=== PATIENT | male | born 1940 | race Caucasian/White ===

== ENCOUNTER 2024-05-28 13:18 | Observation (INO) ==
--- NOTE | 2024-05-28 13:51 | Emergency Department Note ---
HPI - Abdominal Pain General Chief Complaint: Abdominal Pain Stated Complaint: ABD PAIN Time Seen by Provider: 05/28/24 13:26 Source: patient and family Mode of arrival: walk-in Limitations: no limitations History of Present Illness HPI narrative: This is a 83 year old male patient that presents to the ER with c/o diffuse abdominal pain for 3 days. Patient denies any chest pain, SOB, back pain, fever, chills, numbness, tinging, weakness or N/v/D. Patient states he has a history of an aneurysm. MD elicited complaint: abdominal pain Onset (ago): day(s) (3) Pain Consistency: constant Location: diffuse Severity: mild-moderate Quality: cramping Radiation: none Migration to: no migration Exacerbating factors: nothing Relieving factors: nothing Associated symptoms: denies other symptoms Related Data Home Medications Medication Instructions Recorded Confirmed amlodipine 5 mg tablet 5 mg PO DAILY 12/11/23 12/11/23 Previous Rx's Medication Instructions Recorded ketorolac 10 mg tablet 10 mg PO Q6H PRN pain #20 tabs 04/05/24 Allergies Allergy/AdvReac Type Severity Reaction Status Date / Time No Known Drug Allergies Allergy Verified 05/28/24 13:30 Review of Systems Status of ROS 10 or more systems reviewed and unremark able except as noted in history and below Constitutional Denies: fever, chills, change in weight, fatigue or malaise Eyes Denies: change in vision, blurry vision or blind spots Ears, nose, mouth, and throat Denies: throat pain, neck pain, throat swelling, difficulty swallowing, hoarseness or mouth pain Cardiovascular Denies: chest pain, palpitations, edema, swelling of feet/ankles, lightheadedness or shortness of breath with exertion Respiratory Denies: shortness of breath, cough, wheezing, stridor, pain on inspiration or change in phlegm color Gastrointestinal Reports: abdominal pain; Denies: nausea, vomiting, coffee grounds in vomit, heartburn, diarrhea or painful bowel movements Genitourinary Denies: painful urination, urinary frequency, urinary urgency or blood in urine Musculoskeletal Denies: back pain, neck pain, extremity pain, extremity swelling or joint pain Integumentary/Breast Denies: rash, itching, redness, skin pain, skin tenderness or skin swelling Neurological Denies: headache, numbness in extremities, weakness in extremities, lack of coordination or dizziness Psychiatric Denies: anxiety, mood swings, panic attacks, change in sleep pattern or hopelessness Endocrine Denies: excessive urination, excessive thirst, fatigue, cold intolerance or excessive sweating Hematologic/Lymphatic Denies: easy bruising, easy bleeding or enlarged lymph nodes Allergic/Immunologic Denies: hives, throat swelling, tongue swelling, facial swelling or wheezing PFSH PFSH Medical History Colon cancer HTN (hypertension) Surgical History History of appendectomy Hx of tonsillectomy Social History Smoking status: current every day smoker Within the past year, how often did you have a drink containing alcohol: never Score interpretation: A score less than 4 is consistent with normal alcohol consumption. Feel stressed/tense/nervous/anxious/difficulty sleeping: not at all Life stressors: other Life stressor details: 1 Due to disability, difficulty making decisions: No Exam Constitutional: normal general appearance and no apparent distress Vital Signs - 24 hr 05/28/24 13:28 05/28/24 14:02 Temperature 98.9 F Pulse Rate 96 H 86 Respiratory Rate 17 16 Blood Pressure 142/86 179/83 Pulse Oximetry 98 95 Oxygen Delivery Me thod Room Air HENMT: normocephalic, head/scalp atraumatic, hearing grossly normal bilaterally, external ears normal, nasal mucous membranes normal, external nose normal, oral mucous membranes normal and oropharynx normal Eyes: PERRL, EOMs intact bilaterally, conjunctivae normal and no scleral icterus Neck/C-Spine: visual inspection normal and trachea midline Lymph: no lymphadenopathy noted Chest: inspection of chest normal Respiratory: breath sounds equal bilaterally, normal respiratory effort, clear to auscultation bilaterally, no wheezes, no rales, no retractions and no use of accessory muscles Cardiovascular: normal heart rate noted, regular rhythm noted, no gallop, no rub, no murmur, no JVD, no clicks, peripheral pulses 2+ throughout and no additional abnormal heart sounds Gastrointestinal: abdomen normal to inspection, abdomen soft to palpation, tender to palpation (diffuse tenderness), nontender to percussion, nondistended, normoactive bowel sounds, no hepatosplenomegaly, no masses, no pulsatile mass, no ascites and no hernia Genitourinary: no CVA tenderness Back/Pelvis: spine normal to inspection Extremities: normal to inspection, normal to palpation, no tenderness, full ROM, no joint enlargement and no deformity Neurology: no movement abnormality noted, gait normal, speech normal, no fasciculations noted and GCS normal Psychiatry: mental status grossly normal, oriented x3, thought process normal, cooperative and affect normal Skin: skin color normal Course Course Hospital Course: 1534: due to ongoing abdominal pain, elevated WBC will admit patient to the medical floor. VSS, no s/s of acute distress noted Vital Signs Vital signs: Vital Signs Temperature 98.9 F 05/28/24 13:28 Pulse Rate 96 H 05/28/24 13:28 Respiratory Rate 17 05/28/24 13:28 Blood Pressure 142/86 05/28/24 13:28 Pulse Oximetry 98 05/28/24 13:28 Oxygen Delivery Method Room Air 05/28/24 13:28 Temperature 98.9 F 05/28/24 13:28 Pulse Rate 86 05/28/24 14:02 Respiratory Rate 16 05/28/24 14:02 Blood Pressure 179/83 05/28/24 14:02 Pulse Oximetry 95 05/28/24 14:02 Oxygen Delivery Method Room Air 05/28/24 13:28 MDM - Abdominal Pain Differential Diagnosis Differential diagnosis: Likely abdominal pain Medical Records Attestation: I reviewed the patient's medical records. Lab Data Attestation: I reviewed the patient's lab results. Labs: Lab Results 05/28/24 Range/Units 13:40 WBC 12.6 H (3.7-9.6) K/uL RBC 4.8 (4.40-5.80) M/uL Hgb 13.8 L (14.0-17.4) gm/dL Hct 40.8 L (41.3-50.1) % MCV 84.8 (81.9-96.5) fl MCH 28.7 (27.6-33.7) pg MCHC 33.8 (33.0-35.7) g/dl RDW 13.8 (11.0-14.8) % Plt Count 226 (142-355) K/uL MPV 9.5 (6.0-10.4) fl Gran % 58.6 (49.1-73.1) % Lymph % (Auto) 31.4 (17.6-39.05) % [place] % (Auto) 8.0 (4.5-10.7) % Eos % (Auto) 1.6 (0.0-4.0) % Baso % (Auto) 0.4 (0.0-1.3) Lymph # (Auto) 4.0 H (0.8-2.9) [place] # (Auto) 1.0 H (0.2-0.8) Eos # (Auto) 0.2 (0.0-0.3) Baso # (Auto) 0.1 (0.0-0.1) Absolute Gran (auto) 7.4 H (2.0-6.2) Sodium 139 (136-145) mmol/L Potassium 3.7 (3.6-5.2) mmol/L Chloride 98.0 (98-107) mmol/L Carbon Dioxide 33 H (21-32) mmol/L Anion Gap 8.0 (4-14) mEq/L BUN 21 H (7-18) mg/dL Creatinine 1.2 (0.6-1.3) mg/dL Estimated GFR 59.6 (>59.9) Glucose 111 H (70-110) mg/dL Calcium 9.6 (8.5-10.1) mg/dL Total Bilirubin 0.36 (0.0-1.0) mg/dL AST 12 L (15-37) U/L ALT 9 L (30-65) U/L Alkaline Phosphatase 93 (50-136) U/L Troponin I High Sens <4.00 L (4.0-60.4) ng/L Total Protein 8.8 H (6.4-8.2) g/dL Albumin 3.7 (3.4-5.0) g/dL Lipase 52.0 (16.0-77.0) U/L Urine Color Pale yellow (STRAW/YELL.) Urine Appearance Hazy (CLEAR) Ur Specific [place] 1.010 (1.001-1.035) Urine Protein Negative (NEGATIVE) Urine Glucose (UA) Normal (NORMAL) Urine Ketones Negative (NEGATIVE) Urine Occult Blood Trace (NEG - TRACE) Urine Nitrite Negative (NEGATIVE) Urine Bilirubin Negative (NEGATIVE) Urine Urobilinogen Normal (NORMAL) Ur Leukocyte Esterase Negative (NEGATIVE) Urine RBC 0 - 2 (0 - 5) Urine WBC 0 - 2 ( 0 - 5) Ur Epithelial Cells Negative (Few/HPF) Amorphous Sediment Few (Negative) Urine Bacteria Moderate (Negative) Urine Mucus Few (Negative) Urine Trichomonas Negative (Negative) Urine Yeast Negative (Negative) Fluid pH 7.0 (5 - 9) Imaging Data Imaging ordered: CT scan - abdomen Attestation: I have reviewed the pertinent imaging results. ECG Data Attestation: I have reviewed the pertinent ECG results. Discharge Plan Discharge Patient Disposition: Admitted As Observation Condition: Stable Chief Complaint: Abdominal Pain Clinical Impression: Panniculitis, Leukocytosis Prescriptions: No Action amlodipine 5 mg tablet 5 mg PO DAILY ketorolac 10 mg tablet 10 mg PO Q6H PRN (Reason: pain) Qty: 20 0RF Rx Instructions: maximum total duration of 5 days from all oral, intranasal, or parenteral formulations Print Language: French Referrals: Provider,NO PCP [Primary Care Provider] - Time of Disposition: 15:40
[2024-05-28 13:59] LABS: Basophils #(Absolute) Auto 0.1 (0.0-0.1); Basophils%(Percent) Auto 0.4 (0.0-1.3); Eosinophils#(Absolute)Auto 0.2 (0.0-0.3); Eosinophils%(Percent) Auto 1.6 % (0.0-4.0); Granulocytes % - Auto 58.6 % (49.1-73.1); Granulocytes#(Absolute)- Auto 7.4 (2.0-6.2); Hematocrit 40.8 % (41.3-50.1); Mean Corpuscular Volume 84.8 fl (81.9-96.5); Platelet Count 226 K/uL (142-355); White Blood Count 12.6 K/uL (3.7-9.6)
[2024-05-28 14:06] LABS: Carbon Dioxide 33 mmol/L (21-32); Glucose 111 mg/dL (70-110); Potassium 3.7 mmol/L (3.6-5.2); Sodium 139 mmol/L (136-145)
[2024-05-28 14:10] LABS: Urine Appearance HAZY (CLEAR); Urine Blood TRACE (NEG - TRACE); Urine Color PALE YELLOW (STRAW/YELL.)
[2024-05-28 14:11] LABS: Urine Urobilinogen Normal (NORMAL)
[2024-05-28 14:12] LABS: Urine Amorphous Sediment Few (Negative); Urine Yeast Negative (Negative)
[2024-05-28] MEDS ORDERED: 0.9 % SODIUM CHLORIDE MB+ 100 ML IV ONE (15:40)
[2024-05-28] MEDS ORDERED: PIPERACILLIN SODIUM/TAZOBACTAM 3.375 GM VIAL IV ONE (15:40)
[2024-05-28] MEDS ORDERED: ONDANSETRON HCL/PF 4 MG/2 ML VIAL INJ PRN (15:42)
[2024-05-28] MEDS ORDERED: ACETAMINOPHEN 500 MG TABLET PO PRN (15:42)
[2024-05-28] MEDS: ONDANSETRON HCL/PF 4 MG/2 ML VIAL IVP ONE (15:43)
[2024-05-28] MEDS: MORPHINE SULFATE 2 MG/ML CARTRIDGE IV ONE (15:43)
[2024-05-28] MEDS: PIPERACILLIN/TAZOBACTAM 3.375 3.375 GM in 0.9 % SODIUM CHLORIDE MB+ 100 ML IV SCH ×2 (15:45→22:18)
[2024-05-28] MEDS: MORPHINE SULFATE 2 MG/ML CARTRIDGE IV PRN (21:02)
[2024-05-28] MEDS: ZOLPIDEM TARTRATE 10 MG TABLET PO PRN (22:18)
[2024-05-29 05:35] LABS: Basophils%(Percent) Auto 0.4 (0.0-1.3); Eosinophils#(Absolute)Auto 0.2 (0.0-0.3); Eosinophils%(Percent) Auto 2.6 % (0.0-4.0); Granulocytes % - Auto 71.7 % (49.1-73.1); Granulocytes#(Absolute)- Auto 6.4 (2.0-6.2); Hematocrit 35.9 % (41.3-50.1); Mean Corpuscular Volume 84.1 fl (81.9-96.5); Monocytes #(Absolute)- Auto 0.7 (0.2-0.8); Monocytes %(Percent)- Auto 7.5 % (4.5-10.7); Platelet Count 182 K/uL (142-355); White Blood Count 8.9 K/uL (3.7-9.6)
[2024-05-29 05:59] LABS: Potassium 3.6 mmol/L (3.6-5.2)
[2024-05-29 07:51] VITALS: BP 144/66; PULSE 81; RESP 19; TEMP 97.7
[2024-05-29] MEDS: AMLODIPINE BESYLATE 5 MG TABLET PO SCH (08:59)
[2024-05-29] MEDS: 0.9 % SODIUM CHLORIDE 500 ML IV ONE (10:32)
--- NOTE | 2024-05-29 13:26 | Short Stay Summary ---
H&P: HPI History of Present Illness Chief complaint: panniculis,leukocytosis Narrative: This is a 83 year old male patient that presents to the ER with c/o diffuse abdominal pain for 3 days. Patient denies any chest pain, SOB, back pain, fever, chills, numbness, tinging, weakness or N/v/D. Patient states he has a history of an aneurysm. Admitted to med/surg for observation and treatment. Patient refused to allow us to make follow up appointments for him, stated he would make necessary appointments with his primary care provider. Patient left AMA prior to Provider making rounds. Review of Systems Status of ROS 10 or more systems reviewed and unremark able except as noted in history and below Constitutional Denies: fever, chills, change in weight, fatigue or malaise Eyes Denies: change in vision, blurry vision or blind spots Ears, nose, mouth, and throat Denies: throat pain, neck pain, throat swelling, difficulty swallowing, hoarseness or mouth pain Cardiovascular Denies: chest pain, palpitations, edema, swelling of feet/ankles, lightheadedness or shortness of breath with exertion Respiratory Denies: shortness of breath, cough, wheezing, stridor, pain on inspiration or change in phlegm color Gastrointestinal Reports: abdominal pain; Denies: nausea, vomiting, coffee grounds in vomit, heartburn, diarrhea, difficulty swallowing or painful bowel movements Genitourinary Denies: painful urination, urinary frequency, urinary urgency or blood in urine Musculoskeletal Denies: back pain, neck pain, extremity pain, extremity swelling or joint pain Integumentary/Breast Denies: rash, itching, redness, skin pain, skin tenderness or skin swelling Neurological Denies: headache, numbness in extremities, weakness in extremities, lack of coordination or dizziness Psychiatric Denies: anxiety, mood swings, panic attacks, change in sleep pattern or hopelessness Endocrine Denies: excessive urination, excessive thirst, fatigue, cold intolerance or excessive sweating Hematologic/Lymphatic Denies: easy bruising, easy bleeding or enlarged lymph nodes Allergic/Immunologic Denies: hives, throat swelling, tongue swelling, facial swelling or wheezing PFSH [facility] Medical History (Updated 05/29/24 @ 13:12 by JARRED Xiong) Colon cancer HTN (hypertension) Surgical History History of appendectomy Hx of tonsillectomy Social History Smoking status: current every day smoker Within the past year, how often did you have a drink containing alcohol: never Score interpretation: A score less than 4 is consistent with normal alcohol consumption. Problems where you live: no known problems Highest level of school completed/degree received: high school Feel stressed/tense/nervous/anxious/difficulty sleeping: not at all Life stressors: other Life stressor details: 1 Due to disability, difficulty making decisions: No Meds Home Medications and Allergies Home Medications Medication Instructions Recorded Confirmed Type amlodipine 5 mg tablet 5 mg PO DAILY 12/11/23 05/29/24 History zolpidem 5 mg tablet 5 mg PO BEDTIME 05/28/24 05/28/24 History clotrimazole-betamethasone 1 1 applic topical DAILY 05/29/24 05/29/24 History %-0.05 % topical cream cyanocobalamin (vitamin B-12) 500 mcg IM Q14D 05/29/24 05/29/24 History 1,000 mcg/mL injection solution furosemide 20 mg tablet 20 mg PO DAILY 05/29/24 05/29/24 History gabapentin 100 mg capsule 100 mg PO DAILY 05/29/24 05/29/24 History hydrochlorothiazide 12.5 mg capsule 12.5 mg PO DAILY 05/29/24 05/29/24 History hydrocodone 7.5 mg-acetaminophen 1 tab PO Q8H PRN pain 05/29/24 05/29/24 History 325 mg tablet pantoprazole 40 mg tablet,delayed 40 mg PO DAILY 05/29/24 05/29/24 History release pravastatin 40 mg tablet 40 mg PO DAILY 05/29/24 05/29/24 History promethazine 25 mg tablet 25 mg PO Q12H PRN nausea and 05/29/24 05/29/24 History vomiting sucralfate 1 gram tablet 1 g PO Q6H 05/29/24 05/29/24 History Allergies Allergy/AdvReac Type Severity Reaction Status Date / Time No Known Drug Allergies Allergy Verified 05/28/24 13:30 Exam Exam: Patient left AMA prior to provider being able to perform exam. Constitutional: normal general appearance and no apparent distress Vital Signs - 24 hr 05/28/24 13:28 05/28/24 14:02 05/28/24 14:30 Temperature 98.9 F Pulse Rate 96 H 86 82 Pulse Rate [Right Brachial] Respiratory Rate 17 16 16 Blood Pressure 142/86 179/83 123/70 Blood Pressure [Ri ght Arm] Pulse Oximetry 98 95 95 Oxygen Delivery Me thod Room Air Room Air 05/28/24 15:00 05/28/24 15:30 05/28/24 16:02 Temperature Pulse Rate 81 76 Pulse Rate [Right Brachial] Respiratory Rate 16 16 Blood Pressure 140/72 127/71 Blood Pressure [Ri ght Arm] Pulse Oximetry 96 96 Oxygen Delivery Me thod Room Air Room Air Room Air 05/28/24 16:02 05/28/24 16:29 05/29/24 07:00 Temperature 98.3 F 98.9 F 97.7 F Pulse Rate 83 Pulse Rate [Right Brachial] 80 81 Respiratory Rate 18 16 19 Blood Pressure 139/79 Blood Pressure [Ri ght Arm] 120/84 144/66 Pulse Oximetry 96 97 96 Oxygen Delivery Me thod Room Air Room Air HENMT: normocephalic, head/scalp atraumatic, hearing grossly normal bilaterally, external ears normal, nasal mucous membranes normal, external nose normal, oral mucous membranes normal and oropharynx normal Eyes: PERRL, EOMs intact bilaterally, conjunctivae normal and no scleral icterus Neck/C-Spine: visual inspection normal and trachea midline Lymph: no lymphadenopathy noted Chest: inspection of chest normal Respiratory: breath sounds equal bilaterally, normal respiratory effort, clear to auscultation bilaterally, no wheezes, no rales, no retractions and no use of accessory muscles Cardiovascular: normal heart rate noted, regular rhythm noted, no gallop, no rub, no murmur, no JVD, no clicks, peripheral pulses 2+ throughout and no additional abnormal heart sounds Gastrointestinal: abdomen normal to inspection, abdomen soft to palpation, tender to palpation (diffuse tenderness), nontender to percussion, nondistended, normoactive bowel sounds, no hepatosplenomegaly, no masses, no pulsatile mass, no ascites and no hernia Genitourinary: no CVA tenderness Back/Pelvis: spine normal to inspection Extremities: normal to inspection, normal to palpation, no tenderness, full ROM, no joint enlargement and no deformity Neurology: no movement abnormality noted, gait normal, speech normal, no fasciculations noted and GCS normal Psychiatry: mental status grossly normal, oriented x3, thought process normal, cooperative and affect normal Skin: skin color normal Assessment and Plan Assessment and Plan (1) Panniculitis: Code(s): M79.3 - Panniculitis, unspecified (2) Leukocytosis: Qualifiers: Leukocytosis type: unspecified Qualified Code(s): D72.829 - Elevated white blood cell count, unspecified Code(s): D72.829 - Elevated white blood cell count, unspecified (3) Colon cancer: Qualifiers: Colon location: unspecified part of colon Qualified Code(s): C18.9 - Malignant neoplasm of colon, unspecified Code(s): C18.9 - Malignant neoplasm of colon, unspecified (4) HTN (hypertension): Qualifiers: Hypertension type: primary hypertension Qualified Code(s): I10 - Essential (primary) hypertension Code(s): I10 - Essential (primary) hypertension Plan Piperacillin Sod/Tazobactam Sod 3.375 gm in Sodium Chloride 100 mls @ 200 mls/hr IV Q6H Acetaminophen 500 mg PO Q6H PRN Morphine Sulfate 1 mg IV Q6H PRN Ondansetron Hcl 4 mg INJ Q6H PRN Amlodipine Besylate 5 mg PO Daily Zolpidem Tartrate 5 mg PO Bedtime PRN Sodium Chloride 500 mls @ 250 mls/hr IV ONCE Patient left AMA. Procedures Procedure Instructions This is a 83 year old male patient that presents to the ER with c/o diffuse abdominal pain for 3 days. Patient denies any chest pain, SOB, back pain, fever, chills, numbness, tinging, weakness or N/v/D. Patient states he has a history of an aneurysm. Admitted to med/surg for observation and treatment. Patient refused to allow us to make follow up appointments for him, stated he would make necessary appointments with his primary care provider. Patient left AMA prior to Provider making rounds. Results Labs Labs: CBC WBC 8.9 K/uL (3.7-9.6) 05/29/24 04:50 RBC 4.3 M/uL (4.40-5.80) L 05/29/24 04:50 Hgb 12.3 gm/dL (14.0-17.4) L 05/29/24 04:50 Hct 35.9 % (41.3-50.1) L 05/29/24 04:50 MCV 84.1 fl (81.9-96.5) 05/29/24 04:50 MCH 28.8 pg (27.6-33.7) 05/29/24 04:50 MCHC 34.3 g/dl (33.0-35.7) 05/29/24 04:50 RDW 13.9 % (11.0-14.8) 05/29/24 04:50 Plt Count 182 K/uL (142-355) 05/29/24 04:50 MPV 9.4 fl (6.0-10.4) 05/29/24 04:50 Gran % 71.7 % (49.1-73.1) 05/29/24 04:50 Lymph % (Auto) 17.8 % (17.6-39.05) 05/29/24 04:50 [place] % (Auto) 7.5 % (4.5-10.7) 05/29/24 04:50 Eos % (Auto) 2.6 % (0.0-4.0) 05/29/24 04:50 Baso % (Auto) 0.4 (0.0-1.3) 05/29/24 04:50 Lymph # (Auto) 1.6 (0.8-2.9) 05/29/24 04:50 [place] # (Auto) 0.7 (0.2-0.8) 05/29/24 04:50 Eos # (Auto) 0.2 (0.0-0.3) 05/29/24 04:50 Baso # (Auto) 0.0 (0.0-0.1) 05/29/24 04:50 Absolute Gran (auto) 6.4 (2.0-6.2) H 05/29/24 04:50 BMP Sodium 138 mmol/L (136-145) 05/29/24 04:50 Potassium 3.6 mmol/L (3.6-5.2) 05/29/24 04:50 Chloride 101.0 mmol/L (98-107) 05/29/24 04:50 Carbon Dioxide 32 mmol/L (21-32) 05/29/24 04:50 Anion Gap 5.0 mEq/L (4-14) 05/29/24 04:50 BUN 23 mg/dL (7-18) H 05/29/24 04:50 Creatinine 1.4 mg/dL (0.6-1.3) H 05/29/24 04:50 Estimated GFR 49.6 (>59.9) 05/29/24 04:50 Glucose 103 mg/dL (70-110) 05/29/24 04:50 Calcium 8.8 mg/dL (8.5-10.1) 05/29/24 04:50 Total Bilirubin 0.48 mg/dL (0.0-1.0) 05/29/24 04:50 AST 14 U/L (15-37) L 05/29/24 04:50 ALT 8 U/L (30-65) L 05/29/24 04:50 Alkaline Phosphatase 70 U/L (50-136) 05/29/24 04:50 Total Protein 7.1 g/dL (6.4-8.2) 05/29/24 04:50 Albumin 2.9 g/dL (3.4-5.0) L 05/29/24 04:50 Cardiac Enzymes Troponin I High Sens <4.00 ng/L (4.0-60.4) L 05/28/24 13:40 Liver Function Total Bilirubin 0.48 mg/dL (0.0-1.0) 05/29/24 04:50 AST 14 U/L (15-37) L 05/29/24 04:50 ALT 8 U/L (30-65) L 05/29/24 04:50 Alkaline Phosphatase 70 U/L (50-136) 05/29/24 04:50 Total Protein 7.1 g/dL (6.4-8.2) 05/29/24 04:50 Albumin 2.9 g/dL (3.4-5.0) L 05/29/24 04:50 Urine Urine Color Pale yellow (STRAW/YELL.) 05/28/24 13:40 Urine Appearance Hazy (CLEAR) 05/28/24 13:40 Ur Specific [place] 1.010 (1.001-1.035) 05/28/24 13:40 Urine Protein Negative (NEGATIVE) 05/28/24 13:40 Urine Glucose (UA) Normal (NORMAL) 05/28/24 13:40 Urine Ketones Negative (NEGATIVE) 05/28/24 13:40 Urine Occult Blood Trace (NEG - TRACE) 05/28/24 13:40 Urine Nitrite Negative (NEGATIVE) 05/28/24 13:40 Urine Bilirubin Negative (NEGATIVE) 05/28/24 13:40 Urine Urobilinogen Normal (NORMAL) 05/28/24 13:40 Ur Leukocyte Esterase Negative (NEGATIVE) 05/28/24 13:40 Imaging Imaging ordered: CT scan - abdomen Radiologist's impression: CT abdomen pelvis with contrast HISTORY: Abdominal pain TECHNIQUE: Axial postcontrast images with coronal and sagittal reformats. Dose reduction procedures were used with mA/kv adjusted for body size. COMPARISON: None FINDINGS: Lung bases are clear. Liver, spleen, adrenal glands, and pancreas are within normal limits. Patient is status post cholecystectomy. Kidneys are unobstructed and without stones or masses. There is a small left renal cyst present. No ureteral calculi are identified. The appendix is normal. Diffuse calcific atherosclerotic changes present in the abdominal aorta. There is mild fusiform dilatation of the infrarenal abdominal aorta demonstrating a maximum AP diameter 3.6 cm and a maximum transverse diameter 3.8 cm. No intraperitoneal or retroperitoneal lymphadenopathy of significance is identified. There is slight increased attenuation in the fat at the root of the small bowel mesentery. This finding can be seen in both acute and chronic mesenteritis (panniculitis) which is nonspecific inflammatory process of uncertain etiology. There are no findings suggestive of enteritis, colitis, or diverticulitis. No pelvic masses, pelvic fluid, or pelvic lymphadenopathy is identified. No bladder abnormality is identified. Prostate gland is enlarged. No lytic or blastic skeletal lesions of significance identified. IMPRESSION: [id number] increased attenuation in the fat at the root of the small bowel mesentery which can be seen in both acute and chronic mesenteritis (panniculitis which is a nonspecific inflammatory process of uncertain etiology. Mild dilatation of the infrarenal abdominal aorta maximum AP diameter 3.6 cm, maximum transverse diameter 3.8 cm. Enlarged prostate gland DS: Providers Provider Date of admission: 05/28/24 15:58 Primary care physician: Kelli Ling NP Admitting clinician: Kiley Dela Cruz Attending physician on admission: Corina Dai Attending physician on discharge: Corina Dai Discharging clinician: Corina Dai Anticipated date of discharge: 05/29/24 DS: Summary Hospital Course Hospital Course: This is a 83 year old male patient that presents to the ER with c/o diffuse abdominal pain for 3 days. Patient denies any chest pain, SOB, back pain, fever, chills, numbness, tinging, weakness or N/v/D. Patient states he has a history of an aneurysm. Admitted to med/surg for observation and treatment. Patient refused to allow us to make follow up appointments for him, stated he would make necessary appointments with his primary care provider. Patient left AMA prior to Provider making rounds. Status at Discharge Functional status at discharge: independent ambulation Overall status at discharge: patient is not back to baseline Time Spent with Patient Time attestation: Total time spent providing and/or coordinating discharge services: Time spent: greater than 30 minutes Discharge Plan Discharge Disposition: Left Against Medical Advice Condition: Stable Discharge Medications: No Action zolpidem 5 mg tablet 5 mg PO BEDTIME pravastatin 40 mg tablet 40 mg PO DAILY sucralfate 1 gram tablet 1 g PO Q6H hydrocodone-acetaminophen 7.5-325 mg tablet 1 tab PO Q8H PRN (Reason: pain) pantoprazole 40 mg tablet,delayed release (DR/EC) 40 mg PO DAILY cyanocobalamin (vitamin B-12) 1,000 mcg/mL solution 500 mcg IM Q14D clotrimazole-betamethasone 1-0.05 % cream 1 applic TOPICAL DAILY promethazine 25 mg tablet 25 mg PO Q12H PRN (Reason: nausea and vomiting) hydrochlorothiazide 12.5 mg capsule 12.5 mg PO DAILY furosemide 20 mg tablet 20 mg PO DAILY gabapentin 100 mg capsule 100 mg PO DAILY amlodipine 5 mg tablet 5 mg PO DAILY Hospital Course: This is a 83 year old male patient that presents to the ER with c/o diffuse abdominal pain for 3 days. Patient denies any chest pain, SOB, back pain, fever, chills, numbness, tinging, weakness or N/v/D. Patient states he has a history of an aneurysm. Admitted to med/surg for observation and treatment. Patient refused to allow us to make follow up appointments for him, stated he would make necessary appointments with his primary care provider. Patient left AMA prior to Provider making rounds. Interventions: MED/SURG & ICU Observation Charge Sheet Last Done: 05/29/24 11:08 Print Language: Yemeni Forms: Portal/Health Info Access Inst Follow-Ups: Kelli Ling NP [Primary Care Provider] - 06/06/24 10:50 am Provider,NO PCP [Physician] - Discharge Date/Time: 05/29/24 10:45
== END 2024-05-29 10:45 | disposition left against medical advice (07) ==
LOC: MS 13:18 → ED 13:18 → MS 16:31
PROVIDERS: ADMIT Family Medicine; ATTEND Family Medicine